=== PATIENT | female | born 1965 | race Caucasian/White ===

== ENCOUNTER 2024-10-18 00:46 | Day surgery (SDC) | payer BC, SELFPAY ==
[2024-10-07 13:22] VITALS: BMI 29.5
--- OUTSIDE RECORDS SUMMARY | 2024-10-18 08:40 | XMS_ITS | Patient Health Record ---
Author Organization [facility] Address [address] [place] [address] Care Team Providers Care Motor And Chassis Inspector Name Role Phone JANETTE NUNES Unavailable Unavailable Reason For Referral No Information Plan Of Treatment No Information Insurance Providers Payer Name Payer Address Payer Phone Subscriber Number Group Number Insured Name Patient Relationship to Insured Coverage Start Date Coverage End Date [place] [address] [place] [address] [id number] NEGRITO CHANEY Self - patient is the insured
--- OUTSIDE RECORDS SUMMARY | 2024-10-18 08:40 | XMS_ITS | Patient Health Record ---
Author Organization [facility] Address [address] [place] [address] Care Team Providers Care Psych Tech Name Role Phone Bayron Lion Unavailable [phone] Allergies No Known Allergies Reason For Referral No Information Medications Medication SIG (Take, Route, Frequency, Duration) Notes Start Date End Date Status ALPRAZolam 0.5 MG 1 tab(s) orally PRN 07/29/2018 Active Pravastatin Sodium 20 MG TAKE 1 TABLET B Y MOUTH EVERY NIGHT AT BEDTIME Oral for 90 Active metFORMIN HCl ER 500 MG TAKE 1 TABLET BY MOUTH TWICE DAILY Oral for 90 Active Omeprazole 40 MG TAKE ONE CAPSULE BY MOUTH EVERY NIGHT AT BEDTIME Oral for 90 Active Sertraline HCl 100 MG TAKE 1 TABLET BY M OUTH EVERY DAY Oral for 90 Active Levothyroxine Sodium 100 MCG TAKE 1 TABL ET BY MOUTH EVERY DAY Oral for 90 Active Social History Tobacco Use: Social History Observation Description Date Details (start date - stop date) Former Smoker NA - NA Smoking Question Answer Notes Are you a: former smoker Plan Of Treatment No Information Insurance Providers Payer Name Payer Address Payer Phone Subscriber Number Group Number Insured Name Patient Relationship to Insured Coverage Start Date Coverage End Date [facility] [address] [place] [phone] [id number] Kenya Menendez Self - patient is the insured Medical (General) History Medical History History ICD Code Hypothyroidism anxiety Esophageal reflux Surgical History Surgery Date(Month/Year) hysterectomy partial thyroidectomy Hospitalization History Reason Date(Month/Year) childbirth surgeries
[2024-10-18 08:57] VITALS: BP 108/61; PULSE 91; RESP 18; TEMP 36.6; O2SAT 96; BMI 31.0
[2024-10-18] MEDS: LACTATED RINGERS 1,000 ML 150 ML IV CONT (09:06)
--- NOTE | 2024-10-18 09:09 | P.PNAN_ITS ---
Anes - Initial Pre Proc Eval Procedure: Operation Date: 10/18/24 10:15 Proposed Procedures p Screening Colonoscopy - Vijay Ca DO Date/Time: 10/18/24 09:09 Surgeon: Vijay Ca DO Pre Op Diagnosis: Neoplasm screening Patient Data Age: 59 Gender: F Height: 1.75 m Weight: 95.3 kg Last Vital Signs Temp 97.8 F 10/18/24 08:57 Pulse 91 10/18/24 08:57 Resp 18 10/18/24 08:57 BP 108/61 10/18/24 08:57 Pulse Ox 96 10/18/24 08:57 O2 Del Method Room Air 10/18/24 08:57 Allergies Allergy/AdvReac Type Severity Reaction Status Date / Time No Known Allergies Allergy Verified 10/18/24 08:55 Home Medications ?Medication ?Instructions ?Recorded ?Confirmed ?Type pravastatin 40 mg tablet 40 mg PO DAILY #90 tabs 05/24/24 10/18/24 Rx alprazolam 0.5 mg tablet 0.5 mg PO QHS PRN insomnia #30 tabs 09/28/24 10/07/24 Rx levothyroxine 112 mcg tablet 112 mcg PO DAILY #90 tabs 09/28/24 10/18/24 Rx semaglutide 0.25 mg or 0.5 mg (2 0.5 mg subcut WEEKLY 09/28/24 10/18/24 History mg/3 mL) subcutaneous pen injector (Ozempic) sertraline 100 mg tablet 100 mg PO DAILY #90 tabs 09/28/24 10/18/24 Rx Laboratory Tests 10/18/24 08:54 POC Capillary Glucose 108 H mg/dl (65-105) Patient hx anesthesia problems: none Family hx anesthesia problems: none Results Review: All pre-operative results and documents have been reviewed as part of the pre- operative evaluation. [facility] Past Medical History Medical History Thyroid disorder Diabetes Type 2 Surgical History Surgical History H/O partial thyroidectomy H/O: hysterectomy Family History Family History Mother Diabetes mellitus Cancer Breast Grandparent Cancer Breast Social History Social History Smoking status: Former smoker Tobacco type: cigarettes Alcohol intake: never Alcohol use details: very rarely Substance use: never Substance use type: does not use Do You Feel Safe in your Home?: Yes Lack of Transportation: No Lack of Food: Never True Current Housing: I Have Housing Concerned About Future Housing: No Difficulty Paying Gas/Electric Bills: YES Difficulty Paying for Meds: No Currently Unemployed: No Education: Master's Degree or Higher Difficulty w/ Childcare or Family Care: No Living arrangements: alone Occupation/Education: occupation Gender identity (if verbalized by the patient): Female Agree to blood products: Yes Anes - Eval Final PreProcedure Day of Procedure 10/18/24 09:09 Patient weight: obese Lungs: normal air movement Airway: Mallampati scale class II Neurological: alert and oriented Last oral intake: >/= 8 hours ASA classification: II Emergent: no Anesthetic plan: proceed Anesthesia type and monitoring: general GIVS and standard monitoring Results Review: All pre-operative results and documents have been reviewed as part of the pre- operative evaluation. Hypothyroidism, hyperlipidemia. Informed Consent: The patient's anesthetic plan and its attendant risks and benefits were discussed with the patient/family/POA. Questions were solicited and answers provided to the satisfaction of the patient/family/POA.
--- NOTE | 2024-10-18 09:37 | PM.IMHP ---
H&P: HPI History of Present Illness Date/Time: 10/18/24 09:37 Chief Complaint: family history of colon cancer Narrative: this is a 59-year-old woman who presents for colonoscopy. Her last colonoscopy was 5 years ago. She has a family history of colon cancer in her mother. She denies any hematochezia or melena. Review of Systems Review of Systems: All systems reviewed & are unremarkable except as noted in HPI and below Constitutional: Constitutional: Denies chills, Denies fever(s), Denies headache(s) and Denies weight loss Eyes: Eyes: Denies change in vision ENT: Denies dizziness, Denies headache(s), Denies neck mass and Denies throat swelling Cardiovascular: Cardiovascular: Denies chest pain, Denies lightheadedness and Denies dyspnea Respiratory: Respiratory: Denies cough, Denies dyspnea and Denies wheezing Gastrointestinal: Gastrointestinal: Denies abdominal pain, Denies change in bowel habits, Denies nausea and Denies vomiting Genitourinary: Genitourinary: Denies hematuria and Denies dysuria Musculoskeletal: Musculoskeletal: Reports as per HPI Integumentary/Breasts: Skin/Breast: Reports as per HPI Neurologic: Denies dizziness and Denies headache(s) Allergic/Immunologic: Allergic/Immunologic: Denies throat swelling and Denies wheezing [facility] Past Medical History Medical History Thyroid disorder Diabetes Type 2 Surgical History Surgical History H/O partial thyroidectomy H/O: hysterectomy Family History Family History Mother Diabetes mellitus Cancer Breast Grandparent Cancer Breast Social History Social History Smoking status: Former smoker Tobacco type: cigarettes Alcohol intake: never Alcohol use details: very rarely Substance use: never Substance use type: does not use Do You Feel Safe in your Home?: Yes Lack of Transportation: No Lack of Food: Never True Current Housing: I Have Housing Concerned About Future Housing: No Difficulty Paying Gas/Electric Bills: YES Difficulty Paying for Meds: No Currently Unemployed: No Education: Master's Degree or Higher Difficulty w/ Childcare or Family Care: No Living arrangements: alone Occupation/Education: occupation Gender identity (if verbalized by the patient): Female Agree to blood products: Yes Meds Home Medications and Allergies Home Medications ?Medication ?Instructions ?Recorded ?Confirmed ?Type pravastatin 40 mg tablet 40 mg PO DAILY #90 tabs 05/24/24 10/18/24 Rx alprazolam 0.5 mg tablet 0.5 mg PO QHS PRN insomnia #30 tabs 09/28/24 10/07/24 Rx levothyroxine 112 mcg tablet 112 mcg PO DAILY #90 tabs 09/28/24 10/18/24 Rx semaglutide 0.25 mg or 0.5 mg (2 0.5 mg subcut WEEKLY 09/28/24 10/18/24 History mg/3 mL) subcutaneous pen injector (Ozempic) sertraline 100 mg tablet 100 mg PO DAILY #90 tabs 09/28/24 10/18/24 Rx Allergies Allergy/AdvReac Type Severity Reaction Status Date / Time No Known Allergies Allergy Verified 10/18/24 08:55 Vital Signs Vital Signs - 24 hr 10/18/24 08:57 Temperature 97.8 F Pulse Rate 91 Respiratory Rate 18 Blood Pressure 108/61 Pulse Oximetry 96 Oxygen Delivery Room Air Exam Const: General: no acute distress and alert Orientation/consciousness: patient oriented x3 HENMT: Head: normocephalic and atraumatic Ears: hearing grossly normal bilaterally Face/Nose/Sinus: Normal nares present Mouth: Yes Normal oral and palatal mucosa present Eyes: Periorbital: periorbital findings normal Sclera: sclerae normal EOM: EOMs intact bilaterally Neck: Neck: normal visual inspection, no lymphadenopathy and trachea midline Chest: Chest palpation & inspection: normal inspection of the chest Resp: Effort & Inspection: normal respiratory effort Auscultation: clear to auscultation bilaterally Cardio: Jugular venous distension: no JVD Rate: regular rate Rhythm: regular rhythm Heart sounds: S1 normal heart sound present and S2 normal heart sound present Peripheral pulses: Peripheral pulses 2+ throughout GI: Inspection: normal to inspection GI Palp: Yes Soft to palpation, No Tenderness to palpation present (GI), No Guarding due to palpation present (GI) and No Rebound tenderness present Percussion: Yes normal to percussion Auscultation: normal bowel sounds : General: Yes no CVA tenderness Back/Spine/Pelvis: Back: no CVA tenderness Neuro: General: patient oriented x3, no focal motor deficits and CN's II-XI intact bilaterally Cognition (Neuro): normal cognition Speech: normal speech Motor exam (neuro): 5/5 motor strength present throughout Extrem: General: capillary refill normal and no clubbing, cyanosis or edema Assessment and Plan Assessment and plan (1) Family hx of colon cancer: Code(s): Z80.0 - Family history of malignant neoplasm of digestive organs Status: Acute Assessment and Plan: I have recommended colonoscopy. I have discussed the procedure, risks, benefits, and alternatives. Questions were answered. Patient is agreeable to proceed.
--- NOTE | 2024-10-18 09:58 | S_PTH ---
PATIENT: Kenya Menendez LOC: [facility] U#:[id number] AGE/SX: 59/F ROOM: RE10/18/[address]: Vijay Ca DO : 1965 BED: DIS: 10/18/2024 SPEC #: [id number] RECD: 10/18/24 10:58 STATUS: MINE REQ #: [id number] SWETHA: 10/18/24 09:[address]: Vijay Ca DEPT: [facility] [place] Surgical RECD BY: Idania Acevedo ENTERED: 10/18/24 10:59 SP TYPE: Surgical OTHR DR: Radha Gatica DO Tissues: A - Colon Polypectomy Procedures: Hematoxylin and Eosin Stain Gross and Microscopic Level 4
[2024-10-18 10:01] VITALS: BP 99/69; PULSE 81; RESP 18; O2SAT 96
[2024-10-18 10:11] VITALS: BP 103/64; PULSE 78; RESP 11; O2SAT 97
[2024-10-18 10:21] VITALS: BP 102/61; PULSE 67; RESP 11; O2SAT 97
== END 2024-10-18 11:33 | disposition home or self-care (01) ==
PROVIDERS: PCP Family Medicine; Visit Provider Surgery
PROC: 0DJD8ZZ Inspection of Lower Intestinal Tract, Via Natural or Artificial Opening Endoscopic (ICD-10-PCS; CPT 45378; principal; 2024-10-18 10:15)
DX: Z12.11 Encounter for screening for malignant neoplasm of colon (principal); D12.0 Benign neoplasm of cecum; E78.5 Hyperlipidemia, unspecified; E11.9 Type 2 diabetes mellitus without complications; E03.9 Hypothyroidism, unspecified; E66.9 Obesity, unspecified; Z68.31 Body mass index [BMI] 31.0-31.9, adult; Z79.85 Long-term (current) use of injectable non-insulin antidiabetic drugs; Z98.890 Other specified postprocedural states; Z87.891 Personal history of nicotine dependence; Z80.0 Family history of malignant neoplasm of digestive organs; Z80.3 Family history of malignant neoplasm of breast
CPT/HCPCS: 45380; 82948; 88305; J2704; J7120